=== PATIENT | male | born 2000 | race Caucasian/White ===

== ENCOUNTER 2022-01-02 15:28 | Emergency (ER) | payer OTHER, SELFPAY ==
[2022-01-02 15:39] VITALS: BP 126/75; PULSE 98; RESP 22; TEMP 36.7; O2SAT 98
[2022-01-02] MEDS: TET,DIPH,PERTUSS(ACELL),VAC/PF 0.5 ML SYRINGE IM (15:48)
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
[2022-01-02] MEDS: ONDANSETRON 4 MG ODT SL (16:13)
[2022-01-02] MEDS: cephALEXin 250 MG CAPSULE 500 MG PO (16:13)
[2022-01-02] MEDS: ONDANSETRON 4 MG/2 ML INJ (16:14)
== END 2022-01-02 16:16 | disposition home or self-care (01) ==
PROVIDERS: Emergency Provider Nurse Practitioner Critical Care Medicine
DX: S01.01XA Laceration without foreign body of scalp, initial encounter (principal); R11.0 Nausea; W22.8XXA Striking against or struck by other objects, initial encounter; Z23 Encounter for immunization
CPT/HCPCS: 13121; 90471; 99284; 90715; J2405